=== PATIENT | male | born 1950 | race Caucasian/White ===

== ENCOUNTER 2021-07-06 02:56 | Emergency (ER) | payer OTHER, MEDICARE ==
[~2021-07-06] VITALS: Ht 188 cm; Wt 83.6 kg
[2021-07-06] MEDS: morphine 2 MG/ML inj. syringe IV PRN ×2 (04:17→05:15)
[2021-07-06 04:42] VITALS: BP 147/72
[2021-07-06] MEDS ORDERED: CELE-193 PO (05:11)
[2021-07-06] MEDS ORDERED: HYDR-3965 PO (05:11)
== END 2021-07-06 05:48 | disposition home or self-care (01) ==
LOC: ER 02:57
DX: S42.032A Displaced fracture of lateral end of left clavicle, initial encounter for closed fracture (principal); M25.512 Pain in left shoulder; I10 Essential (primary) hypertension; I25.2 Old myocardial infarction; F17.200 Nicotine dependence, unspecified, uncomplicated; Z98.890 Other specified postprocedural states; Z72.89 Other problems related to lifestyle; Z88.8 Allergy status to other drugs, medicaments and biological substances; Z79.899 Other long term (current) drug therapy; W19.XXXA Unspecified fall, initial encounter; Y93.89 Activity, other specified; Y92.89 Other specified places as the place of occurrence of the external cause; Y99.8 Other external cause status
CPT/HCPCS: 29105; 73030; 73200; 96374; 96376; 99284; J2270